=== PATIENT | male | born 1935 | race Caucasian/White ===

== ENCOUNTER 2016-10-10 09:59 | Outpatient (CLI) | payer MEDICARE ==
[2016-10-10 18:30] LABS: ALBUMIN/GLOBULIN RATIO 1.6 (1.0-2.2); BILIRUBIN,TOTAL 1.2 mg/dL (0.2-1.0); BUN - BLOOD UREA NITROGEN 14 mg/dL (6-20); CALCIUM 8.6 mg/dL (8.5-10.3); CARBON DIOXIDE - CO2 28 mmol/L (21-32); CHLORIDE 106 mmol/L (101-111); CHOL/HDL RATIO 4.1 (<5.0); CHOLESTEROL 183 mg/dL; CREATININE 0.9 mg/dL (0.6-1.2); GFR - MDRD 81 (>89); GLUCOSE 111 mg/dL (70-100); HDL CHOLESTEROL 45 mg/dL; LDL/HDL RATIO 2.5 (<3.6); POTASSIUM 4.3 mmol/L (3.5-5.0); SODIUM 138 mmol/L (135-145); TOTAL PROTEIN 6.3 g/dL (6.7-8.2); TRIGLYCERIDES 133 mg/dL; VLDL CHOLESTEROL 27 mg/dL
[2016-10-10 18:42] LABS: PSA FREE 0.93 ng/mL (0.16-2.81)
[2016-10-10 18:43] LABS: PSA TOTAL 2.721 ng/mL (0.000-2.000)
[2016-10-10 18:59] LABS: HEMOGLOBIN A1C 0.6 g/dL
== END 2016-10-10 10:00 | disposition home or self-care (01) ==
LOC: LAB.F 09:59
PROVIDERS: ATTEND Family Medicine
DX: E11.9 Type 2 diabetes mellitus without complications (principal); I10 Essential (primary) hypertension; E78.5 Hyperlipidemia, unspecified; R97.20 Elevated prostate specific antigen [PSA]
CPT/HCPCS: 36415; 80053; 80061; 83036; 84154

== ENCOUNTER 2017-10-23 11:43 | Outpatient (CLI) | payer MEDICARE ==
[2017-10-23 17:46] LABS: ALBUMIN 3.4 g/dL (3.2-5.5); ALBUMIN/GLOBULIN RATIO 1.3 (1.0-2.2); ALKALINE PHOSPHATASE 42 IU/L (42-121); ALT ALANINE AMINOTRANSFERASE 16 IU/L (10-60); AST ASPARTATE AMINOTRANSFERASE 19 IU/L (10-42); BILIRUBIN,TOTAL 1.1 mg/dL (0.2-1.0); BUN - BLOOD UREA NITROGEN 12 mg/dL (6-20); CALCIUM 8.3 mg/dL (8.5-10.3); CARBON DIOXIDE - CO2 25 mmol/L (21-32); CHLORIDE 107 mmol/L (101-111); CHOL/HDL RATIO 3.2 (<5.0); CHOLESTEROL 141 mg/dL; CREATININE 0.9 mg/dL (0.6-1.2); GFR - MDRD 81 (>89); GLUCOSE 105 mg/dL (70-100); HDL CHOLESTEROL 44 mg/dL; LDL CHOLESTEROL,CALCULATED 78 mg/dL; LDL/HDL RATIO 1.8 (<3.6); SODIUM 136 mmol/L (135-145); TOTAL PROTEIN 6.1 g/dL (6.7-8.2); VLDL CHOLESTEROL 19 mg/dL
[2017-10-23 17:52] LABS: PSA FREE 0.87 ng/mL (0.16-2.81)
[2017-10-23 17:53] LABS: PSA TOTAL 3.64 ng/mL (0.000-2.000)
[2017-10-23 18:19] LABS: HEMOGLOBIN A1C 0.47 g/dL
== END 2017-10-23 11:44 | disposition home or self-care (01) ==
LOC: LAB.F 11:43
PROVIDERS: ATTEND Family Medicine
DX: E11.9 Type 2 diabetes mellitus without complications (principal); I10 Essential (primary) hypertension; E78.5 Hyperlipidemia, unspecified; R97.20 Elevated prostate specific antigen [PSA]
CPT/HCPCS: 36415; 80053; 80061; 82043; 83036; 83721; 84154

== ENCOUNTER 2018-01-26 13:22 | Outpatient (CLI) | payer MEDICARE ==
--- NOTE | 2018-01-26 15:37 | XRAY Report ---
Reason: DYSPHAGIA, UNSPECIFIED Procedure Date: 01/26/2018 Accession Number: [id number] Procedure: FL - Modified Barium Swallow W/SP CPT Code: FULL RESULT: EXAM: MODIFIED BARIUM SWALLOW EXAM DATE: 01/26/2018 01:47 PM. CLINICAL HISTORY: DYSPHAGIA, UNSPECIFIED. COMPARISON: None. TECHNIQUE: Under the direction of speech pathology, patient swallowed various consistencies of barium under lateral fluoroscopic observation of the neck. Fluoroscopy Time: 33 seconds. FINDINGS: Swallowing Mechanism: Normal oral phase and swallowing reflex. Airway Protection: Normal epiglottic motion. No episodes of tracheal penetration or aspiration with all consistencies of barium. Pharynx: Normal. No significant vallecular or piriform sinus contrast pooling. Other: None. IMPRESSION: Normal modified barium swallow. No aspiration identified. RADIA
== END 2018-01-26 13:23 | disposition home or self-care (01) ==
LOC: DI 13:22
PROVIDERS: ATTEND Surgery
DX: R13.10 Dysphagia, unspecified (principal)
CPT/HCPCS: 74230

== ENCOUNTER 2020-01-25 10:59 | Outpatient (CLI) | payer MEDICARE ==
[2020-01-25 15:49] LABS: PSA TOTAL 3.88 ng/mL (0.000-2.000)
[2020-01-25 16:03] LABS: ALBUMIN 3.7 g/dL (3.2-5.5); ALBUMIN/GLOBULIN RATIO 1.5 (1.0-2.2); ALKALINE PHOSPHATASE 40 IU/L (42-121); ALT ALANINE AMINOTRANSFERASE 17 IU/L (10-60); AST ASPARTATE AMINOTRANSFERASE 19 IU/L (10-42); BILIRUBIN,TOTAL 1.2 mg/dL (0.2-1.0); BUN - BLOOD UREA NITROGEN 15 mg/dL (6-20); CALCIUM 8.8 mg/dL (8.5-10.3); CARBON DIOXIDE - CO2 27 mmol/L (21-32); CHLORIDE 106 mmol/L (101-111); CHOL/HDL RATIO 3.6 (<5.0); CHOLESTEROL 171 mg/dL; CREATININE 0.9 mg/dL (0.6-1.2); GLUCOSE 117 mg/dL (70-100); HDL CHOLESTEROL 48 mg/dL; LDL CHOLESTEROL,CALCULATED 97 mg/dL; SODIUM 139 mmol/L (135-145); TOTAL PROTEIN 6.1 g/dL (6.7-8.2); VLDL CHOLESTEROL 26 mg/dL
[2020-01-25 17:08] LABS: PSA FREE 1.07 ng/mL (0.16-2.81)
== END 2020-01-25 11:00 | disposition home or self-care (01) ==
LOC: LAB.S 10:59
PROVIDERS: ATTEND Internal Medicine
DX: E78.5 Hyperlipidemia, unspecified (principal); R97.20 Elevated prostate specific antigen [PSA]
CPT/HCPCS: 36415; 80053; 80061; 83721; 84153; 84154

== ENCOUNTER 2020-09-21 10:13 | Outpatient (CLI) | payer MEDICARE ==
[2020-09-21 15:16] LABS: BASOPHILS # (AUTO) 0.1 10^3/uL (0.0-0.1); BASOPHILS % (AUTO) 0.6 %; EOSINOPHILS # (AUTO) 0.1 10^3/uL (0.0-0.7); EOSINOPHILS % (AUTO) 1.4 %; HCT - HEMATOCRIT 43.7 % (42.0-52.0); HGB - HEMOGLOBIN 14.5 g/dL (14.0-18.0); LYMPHOCYTES # (AUTO) 3.7 10^3/uL (1.5-3.5); MEAN CORPUSCULAR HEMOGLOBIN 33.1 pg (27.0-31.0); MEAN CORPUSCULAR HGB CONC 33.2 g/dL (32.0-36.0); MEAN CORPUSCULAR VOLUME 99.8 fL (80.0-94.0); MEAN PLATELET VOLUME 11.3 fL (7.4-11.4); MONOCYTES # (AUTO) 0.6 10^3/uL (0.0-1.0); MONOCYTES % (AUTO) 6.4 %; NEUTROPHILS # (AUTO) 4.1 10^3/uL (1.5-6.6); NEUTROPHILS % (AUTO) 48.4 %; PLT - PLATELET COUNT 170 10^3/uL (130-450); RED BLOOD COUNT 4.38 10^6/uL (4.70-6.10); RED CELL DISTRIBUTION WIDTH 12.7 % (12.0-15.0); WHITE BLOOD COUNT 8.5 x10^3/uL (4.8-10.8)
[2020-09-21 15:35] LABS: ALBUMIN 3.9 g/dL (3.2-5.5); ALBUMIN/GLOBULIN RATIO 1.7 (1.0-2.2); ALKALINE PHOSPHATASE 40 IU/L (42-121); ALT ALANINE AMINOTRANSFERASE 16 IU/L (10-60); AST ASPARTATE AMINOTRANSFERASE 20 IU/L (10-42); BILIRUBIN,TOTAL 1.4 mg/dL (0.2-1.0); BUN - BLOOD UREA NITROGEN 17 mg/dL (6-20); CALCIUM 8.6 mg/dL (8.5-10.3); CARBON DIOXIDE - CO2 25 mmol/L (21-32); CHLORIDE 105 mmol/L (101-111); CHOL/HDL RATIO 3.9 (<5.0); CHOLESTEROL 163 mg/dL; CREATININE 0.9 mg/dL (0.6-1.2); GFR - MDRD 80 (>89); GLUCOSE 116 mg/dL (70-100); HDL CHOLESTEROL 42 mg/dL; LDL CHOLESTEROL,CALCULATED 97 mg/dL; LDL/HDL RATIO 2.3 (<3.6); POTASSIUM 4.4 mmol/L (3.5-5.0); SODIUM 139 mmol/L (135-145); TOTAL PROTEIN 6.2 g/dL (6.7-8.2); TRIGLYCERIDES 118 mg/dL; VLDL CHOLESTEROL 24 mg/dL
[2020-09-21 20:20] LABS: ESTIMATED AVERAGE GLUCOSE 100 mg/dL (70-100); HEMOGLOBIN A1c% 5.1 % (4.27-6.07)
== END 2020-09-21 10:14 | disposition home or self-care (01) ==
LOC: LAB.S 10:13
PROVIDERS: ATTEND Internal Medicine
DX: I10 Essential (primary) hypertension (principal); E78.5 Hyperlipidemia, unspecified; R73.9 Hyperglycemia, unspecified; Z12.5 Encounter for screening for malignant neoplasm of prostate
CPT/HCPCS: 36415; 80053; 80061; 83036; 85025; G0103; 83721; 84153

== ENCOUNTER 2020-10-19 11:51 | Outpatient (CLI) | payer MEDICARE ==
--- NOTE | 2020-10-19 16:43 | XRAY Report ---
PROCEDURE: Foot 3 View RT INDICATIONS: FOOT JOINT PAIN, RIGHT TECHNIQUE: 3 views of the foot were acquired. COMPARISON: X-ray ankle 10/19/2020 FINDINGS: Bones: No fractures or dislocations. No suspicious bony lesions. Scattered IP degenerative narrowi ng is present. Soft tissues: No tibiotalar joint effusion. Achilles tendon appears normal. IMPRESSION: Degenerative narrowing. No visualized acute fracture or dislocation. However, occult injury cannot be excluded. Recommend short interval imaging follow-up in 7-10 days as clinically indicated for additi onal evaluation. Reviewed by: Reva Vernon MD on 10/19/2020 4:41 PM PDT Approved by: Reva Vernon MD on 10/19/2020 4:41 PM PDT Station ID: [id number]
--- NOTE | 2020-10-19 17:32 | XRAY Report ---
PROCEDURE: Ankle 3 View RT INDICATIONS: ANKLE JOINT PAIN, RIGHT TECHNIQUE: 3 views of the ankle were acquired. COMPARISON: None. FINDINGS: Bones: No fractures or dislocations. Chronic appearing ossicle at the tip of the lateral malleolus. Scattered subchondral sclerosis and spurring. . Ankle mortise is normally aligned. No suspicious zoe ny lesions. Plantar and posterior calcaneal spurring Soft tissues: No tibiotalar joint effusion. Achilles tendon appears normal. IMPRESSION: No acute fracture. Degenerative changes as above. If the patient's pain or other symptom s persist, consider further evaluation with MRI. Reviewed by: Alverto Da Silva MD on 10/19/2020 5:31 PM PDT Approved by: Alverto Da Silva MD on 10/19/2020 5:31 PM PDT Station ID: [id number]
== END 2020-10-19 23:59 | disposition home or self-care (01) ==
LOC: DI.N 11:51
PROVIDERS: ATTEND Physician Assistant
DX: M19.071 Primary osteoarthritis, right ankle and foot (principal)

== ENCOUNTER 2021-06-11 08:37 | Outpatient (CLI) | payer MEDICARE ==
[2021-06-11 14:22] LABS: BASOPHILS % (AUTO) 0.4 %; EOSINOPHILS # (AUTO) 0.2 10^3/uL (0.0-0.7); EOSINOPHILS % (AUTO) 2.2 %; HCT - HEMATOCRIT 43.3 % (42.0-52.0); HGB - HEMOGLOBIN 14.1 g/dL (14.0-18.0); LYMPHOCYTES # (AUTO) 4.1 10^3/uL (1.5-3.5); LYMPHOCYTES % (AUTO) 42.8 %; MEAN CORPUSCULAR HEMOGLOBIN 32.4 pg (27.0-31.0); MEAN CORPUSCULAR HGB CONC 32.6 g/dL (32.0-36.0); MEAN CORPUSCULAR VOLUME 99.5 fL (80.0-94.0); MONOCYTES # (AUTO) 0.6 10^3/uL (0.0-1.0); MONOCYTES % (AUTO) 6.7 %; NEUTROPHILS # (AUTO) 4.6 10^3/uL (1.5-6.6); NEUTROPHILS % (AUTO) 47.7 %; PLT - PLATELET COUNT 198 10^3/uL (130-450); RED BLOOD COUNT 4.35 10^6/uL (4.70-6.10); RED CELL DISTRIBUTION WIDTH 13.2 % (12.0-15.0); WHITE BLOOD COUNT 9.6 x10^3/uL (4.8-10.8)
[2021-06-11 14:28] LABS: ALBUMIN 3.5 g/dL (3.2-5.5); ALBUMIN/GLOBULIN RATIO 1.1 (1.0-2.2); ALKALINE PHOSPHATASE 52 IU/L (42-121); ALT ALANINE AMINOTRANSFERASE 13 IU/L (10-60); AST ASPARTATE AMINOTRANSFERASE 16 IU/L (10-42); BILIRUBIN,TOTAL 0.9 mg/dL (0.2-1.0); BUN - BLOOD UREA NITROGEN 15 mg/dL (6-20); CALCIUM 8.5 mg/dL (8.5-10.3); CARBON DIOXIDE - CO2 27 mmol/L (21-32); CHLORIDE 104 mmol/L (101-111); CHOL/HDL RATIO 3.8 (<5.0); CHOLESTEROL 155 mg/dL; CREATININE 0.9 mg/dL (0.6-1.2); GFR - MDRD 80 (>89); GLUCOSE 112 mg/dL (70-100); HDL CHOLESTEROL 41 mg/dL; LDL CHOLESTEROL,CALCULATED 99 mg/dL; LDL/HDL RATIO 2.4 (<3.6); POTASSIUM 4.2 mmol/L (3.5-5.0); SODIUM 139 mmol/L (135-145); TOTAL PROTEIN 6.6 g/dL (6.7-8.2); TRIGLYCERIDES 76 mg/dL; VLDL CHOLESTEROL 15 mg/dL
== END 2021-06-11 08:38 | disposition home or self-care (01) ==
LOC: LAB.S 08:37
PROVIDERS: ATTEND Internal Medicine
DX: I10 Essential (primary) hypertension (principal); E78.5 Hyperlipidemia, unspecified
CPT/HCPCS: 36415; 80053; 80061; 83721; 85025

== ENCOUNTER 2021-10-02 08:00 | Outpatient (CLI) | payer MEDICARE ==
--- NOTE | 2021-10-02 09:14 | XRAY Report ---
PROCEDURE: Chest 2 View X-Ray INDICATIONS: DYSPNEA TECHNIQUE: 2 view(s) of the chest. COMPARISON: None. FINDINGS: Surgical changes and devices: None. Lungs and pleura: Mild bilateral effusions are present, right greater than left. Mediastinum: Mediastinal contours are normal. Heart size is normal. Bones and chest wall: No suspicious bony abnormalities. Soft tissues appear unremarkable. IMPRESSION: Mild bilateral effusions as above. Underlying areas of pneumonia, mass lesion and/or ate lectasis cannot be excluded. Reviewed by: Reva Vernon MD on 10/02/2021 9:13 AM PDT Approved by: Reva Vernon MD on 10/02/2021 9:13 AM PDT Station ID: [id number]
== END 2021-10-02 23:59 | disposition home or self-care (01) ==
LOC: DI.S 08:00
PROVIDERS: ATTEND Registered Nurse
DX: J90 Pleural effusion, not elsewhere classified (principal)

== ENCOUNTER 2022-05-03 09:43 | Outpatient (CLI) | payer MEDICARE ==
[2022-05-03 15:37] LABS: BASOPHILS % (AUTO) 0.5 %; EOSINOPHILS # (AUTO) 0.1 10^3/uL (0.0-0.7); EOSINOPHILS % (AUTO) 1.5 %; HCT - HEMATOCRIT 44.3 % (42.0-52.0); HGB - HEMOGLOBIN 14.2 g/dL (14.0-18.0); LYMPHOCYTES # (AUTO) 3.5 10^3/uL (1.5-3.5); LYMPHOCYTES % (AUTO) 39.7 %; MEAN CORPUSCULAR HEMOGLOBIN 31.8 pg (27.0-31.0); MEAN CORPUSCULAR HGB CONC 32.1 g/dL (32.0-36.0); MEAN CORPUSCULAR VOLUME 99.3 fL (80.0-94.0); MEAN PLATELET VOLUME 10.6 fL (7.4-11.4); MONOCYTES # (AUTO) 0.5 10^3/uL (0.0-1.0); MONOCYTES % (AUTO) 5.2 %; NEUTROPHILS # (AUTO) 4.7 10^3/uL (1.5-6.6); NEUTROPHILS % (AUTO) 52.6 %; PLT - PLATELET COUNT 206 10^3/uL (130-450); RED BLOOD COUNT 4.46 10^6/uL (4.70-6.10); RED CELL DISTRIBUTION WIDTH 13.9 % (12.0-15.0); WHITE BLOOD COUNT 8.8 x10^3/uL (4.8-10.8)
[2022-05-03 15:39] LABS: BILIRUBIN,URINE NEGATIVE (NEGATIVE); ESTIMATED AVERAGE GLUCOSE 103 mg/dL (70-100); GLUCOSE, URINE (UA) NEGATIVE (NEGATIVE); HEMOGLOBIN A1c% 5.2 % (4.27-6.07); KETONES,URINE (UA) NEGATIVE (NEGATIVE); LEUKOCYTE ESTERASE, URINE NEGATIVE (NEGATIVE); NITRITE,URINE NEGATIVE (NEGATIVE); OCCULT BLOOD,URINE NEGATIVE (NEGATIVE); PROTEIN,URINE NEGATIVE (NEGATIVE); UROBILINOGEN,URINE 0.2 (NORMAL) E.U./dL (NORMAL)
[2022-05-03 15:41] LABS: CLARITY,URINE CLOUDY (CLEAR)
[2022-05-03 15:54] LABS: AMORPHOUS SEDIMENT,UR Marked /LPF; BACTERIA,URINE None Seen /HPF (None Seen); CRYSTALS,URINE 3-5 Calcium Oxalate /LPF; RBC,URINE None Seen /HPF (0-5); SQUAMOUS EPITHELIAL CELL,UR NONE SEEN (<= Few); WBC,URINE 0-3 /HPF (0-3)
[2022-05-03 16:08] LABS: THYROID STIMULATING HORMONE 1.03 uIU/mL (0.34-5.60)
[2022-05-03 16:16] LABS: FOLATE 15.01 ng/mL (5.90 - >24.8)
[2022-05-03 16:18] LABS: ALBUMIN 3.4 g/dL (3.2-5.5); ALBUMIN/GLOBULIN RATIO 1.2 (1.0-2.2); ALKALINE PHOSPHATASE 46 IU/L (42-121); ALT ALANINE AMINOTRANSFERASE 14 IU/L (10-60); AST ASPARTATE AMINOTRANSFERASE 17 IU/L (10-42); BILIRUBIN,TOTAL 0.9 mg/dL (0.2-1.0); BUN - BLOOD UREA NITROGEN 20 mg/dL (6-20); CALCIUM 8.9 mg/dL (8.5-10.3); CARBON DIOXIDE - CO2 31 mmol/L (21-32); CHLORIDE 102 mmol/L (101-111); CHOL/HDL RATIO 3.6 (<5.0); CHOLESTEROL 167 mg/dL; CREATININE 0.8 mg/dL (0.6-1.2); GFR - MDRD 92 (>89); GLUCOSE 112 mg/dL (70-100); HDL CHOLESTEROL 46 mg/dL; LDL CHOLESTEROL,CALCULATED 102 mg/dL; LDL/HDL RATIO 2.2 (<3.6); POTASSIUM 4.1 mmol/L (3.5-5.0); SODIUM 140 mmol/L (135-145); TOTAL PROTEIN 6.3 g/dL (6.7-8.2); TRIGLYCERIDES 95 mg/dL; VLDL CHOLESTEROL 19 mg/dL
== END 2022-05-03 09:44 | disposition home or self-care (01) ==
LOC: LAB.S 09:43
PROVIDERS: ATTEND Registered Nurse
DX: E78.5 Hyperlipidemia, unspecified (principal); R63.4 Abnormal weight loss; N40.1 Benign prostatic hyperplasia with lower urinary tract symptoms; N13.8 Other obstructive and reflux uropathy; D75.89 Other specified diseases of blood and blood-forming organs; R73.9 Hyperglycemia, unspecified; I49.3 Ventricular premature depolarization
CPT/HCPCS: 36415; 80053; 80061; 81001; 82607; 82746; 83036; 83721; 83880; 84153; 84443; 85025; 87086

== ENCOUNTER 2022-05-23 09:57 | Outpatient (CLI) | payer MEDICARE ==
--- NOTE | 2022-05-23 11:39 | CT Report ---
PROCEDURE: CHEST WO INDICATIONS: CHF, DYSPNEA, WEIGHT LOSS TECHNIQUE: Noncontrast 1mm axial images were acquired from the pulmonary apices to the posterior costophrenic an gles. Axial 5 mm soft tissue kernel reconstructions were performed as well as 8 mm axial MIP and cor onal and sagittal 5 mm reformations. For radiation dose reduction, the following was used: automate d exposure control, adjustment of mA and/or kV according to patient size. COMPARISON: Chest radiograph 10/02/2021 FINDINGS: Image quality: Good Lungs and pleura: Scattered scarring/atelectasis. There are areas of thickening and calcifications, m ost notably in the right middle lobe and bilateral bases. Small bilateral effusions, with pleural thi ckening. Mediastinum, heart, and esophagus: No hiatal hernia. Cardiomegaly and biatrial enlargement. Coronary calcifications. Lipomatous hypertrophy interatrial septum. Chest wall and thyroid: Unremarkable. Thyroid is unremarkable. Upper abdomen: Separately dictated Bones: Degenerative changes without acute or suspicious osseous abnormality. IMPRESSION: Chronic pulmonary scarring, areas of nodularity, and pleural effusions. Nodularity is most noticeable at the bilateral bases and right middle lobe, with calcifications. There is also pleural thickening. These findings were likely present on chest radiograph from 10/02/2021. Correlate for any PFT abnorma lities. Consider follow-up with high-resolution chest CT. A less likely differential consideration is neoplasm. Other findings as above. Abdomen findings separately dictated. Reviewed by: Pradeep Peterson MD on 05/23/2022 11:38 AM PST Approved by: Pradeep Peterson MD on 05/23/2022 11:38 AM PST Station ID: [id number]
--- NOTE | 2022-05-23 11:43 | CT Report ---
PROCEDURE: ABDOMEN/PELVIS WO INDICATIONS: CHF, DYSPNEA, WEIGHT LOSS TECHNIQUE: Noncontrast 5 mm thick sections acquired from the diaphragms to the symphysis. 5 mm coronal and sagi ttal reformats were then performed. For radiation dose reduction, the following was used: automated exposure control, adjustment of mA and/or kV according to patient size. COMPARISON: None. FINDINGS: Image quality: Good , But limited due to noncontrast technique Lower chest: Separately dictated Solid organs: Liver is smaller than expected. No gross abnormality. Biliary system and gallbladder ar e unremarkable. No pathologic pancreatic ductal dilation. No splenomegaly. No adrenal nodules. No obs tructing right renal calculi. No hydronephrosis. Vessels and lymph nodes: No abdominal aortic aneurysm or pathologic adenopathy by size criteria. Bowel and peritoneum: No bowel obstruction or pathologic ascites. Moderate fecal loading. Body wall: Small fat-containing umbilical hernia. Pelvis: Prostatomegaly and heterogeneity. Underdistended bladder with mild wall thickening. Small rig ht inguinal fat-containing hernia. Bones: No acute or suspicious osseous finding. IMPRESSION: Limited noncontrast abdomen pelvis CT. No acute finding. Prostatomegaly, not well evaluated on this study. Underdistended bladder with mild wall thickening, w hich can be seen as a sequela of chronic obstruction. Please correlate with PSA and if necessary, cys toscopy. Other incidental and nonacute findings as above. Reviewed by: Pradeep Peterson MD on 05/23/2022 11:[address] [facility] Approved by: Pradeep Peterson MD on 05/23/2022 11:42 AM PST Station ID: [id number]
--- NOTE | 2022-05-23 14:15 | Ultrasound Report ---
PROCEDURE: Chest INDICATIONS: CHF,DYSPNEA,WEIGHT LOSS TECHNIQUE: Real-time scanning was performed, and a suitable site was marked by the slot floor attendant for thoracentesis to be performed by the referring clinician. COMPARISON: None. FINDINGS: Trace right pleural effusion. Loculated small left pleural effusion. IMPRESSION: Small loculated left pleural effusion. Trace right pleural effusion. Reviewed by: Pradeep Peterson MD on 05/23/2022 2:13 PM PST Approved by: Pradeep Peterson MD on 05/23/2022 2:13 PM [facility] Station ID: [id number]
== END 2022-05-23 09:58 | disposition home or self-care (01) ==
LOC: DI 09:57
PROVIDERS: ATTEND Registered Nurse
DX: I50.9 Heart failure, unspecified (principal); J98.4 Other disorders of lung; R91.8 Other nonspecific abnormal finding of lung field; J90 Pleural effusion, not elsewhere classified; N40.0 Benign prostatic hyperplasia without lower urinary tract symptoms

== ENCOUNTER 2022-06-04 13:02 | Outpatient (CLI) | payer MEDICARE ==
--- NOTE | 2022-06-04 16:47 | CT Report ---
PROCEDURE: CHEST WO INDICATIONS: HIGH RESOLUTION -PLEURAL EFFUSION, CHF, WEIGHT LOSS TECHNIQUE: Noncontrast 1mm axial images were acquired from the pulmonary apices to the posterior costophrenic an gles. Axial 5 mm soft tissue kernel reconstructions were performed as well as 8 mm axial MIP and cor onal and sagittal 5 mm reformations. For radiation dose reduction, the following was used: automate d exposure control, adjustment of mA and/or kV according to patient size. COMPARISON: CT chest 05/23/2022. FINDINGS: Image quality: Excellent. Lungs and pleura: Bilateral pleural plaques which are partially calcified. Small left pleural effusi on. Trace right pleural effusion. No pneumothorax. Bilateral peripheral reticular thickening which pe rsists on the prone sequence.. No honeycombing. No air trapping. No bronchiectasis. Mediastinum: Heart size is enlarged. Severe coronary artery calcifications. Trace pericardial effusi on. No mediastinal adenopathy by size criteria. Thoracic aorta and central pulmonary arteries are n ormal in size. Esophagus is normal in caliber. No hiatal hernia. Bones and chest wall: No suspicious bony lesions. No vertebral body compression fractures. No axil oseas or supraclavicular adenopathy by size criteria. The thyroid is normal in size and there are no incidental findings. Abdomen: Visualized upper abdominal solid organs and bowel loops appear normal in the absence of con trast. IMPRESSION: 1. 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 This could be due to prior asbestosis exp osure. Mesothelioma is also a possibility in this patient with weight loss. No chest wall invasion. N o adenopathy. 2. Peripheral reticular thickening. This could represent mild to moderate interstitial lung disease. No honeycombing or bronchiectasis. 3. Small left and trace right pleural effusions. 4. Cardiomegaly. Reviewed by: Ricardo Larkin MD on 06/04/2022 4:46 PM PST Approved by: Ricardo Larkin MD on 06/04/2022 4:46 PM PST Station ID: [id number]
== END 2022-06-04 13:03 | disposition home or self-care (01) ==
LOC: DI 13:02
PROVIDERS: ATTEND Registered Nurse
DX: J90 Pleural effusion, not elsewhere classified (principal); J92.9 Pleural plaque without asbestos; I50.9 Heart failure, unspecified; R63.4 Abnormal weight loss; I51.7 Cardiomegaly

== ENCOUNTER 2022-06-13 15:19 | Outpatient (CLI) | payer MEDICARE | END 2022-06-13 15:20 | disposition home or self-care (01) | LOC: RT 15:19 | PROVIDERS: ATTEND Registered Nurse | DX: R06.00 Dyspnea, unspecified (principal) | CPT/HCPCS: 94010; 94729 ==

== ENCOUNTER 2022-07-16 13:08 | Outpatient (CLI) | payer MEDICARE | END 2022-07-16 13:09 | disposition home or self-care (01) | LOC: LAB.S 13:08 | PROVIDERS: ATTEND Registered Nurse | DX: R06.00 Dyspnea, unspecified (principal) | CPT/HCPCS: 36415; 83880 ==

== ENCOUNTER 2022-12-04 12:34 | Outpatient (CLI) | payer MEDICARE | END 2022-12-04 12:35 | disposition home or self-care (01) | LOC: DI 12:34 | PROVIDERS: ATTEND Registered Nurse | DX: I34.0 Nonrheumatic mitral (valve) insufficiency (principal); I50.9 Heart failure, unspecified; R00.1 Bradycardia, unspecified; I51.7 Cardiomegaly | CPT/HCPCS: 93306 ==